=== PATIENT | female | born 1975 | race Caucasian/White ===

== ENCOUNTER 2017-06-03 10:06 | Inpatient (IN) | payer OTHER ==
[2017-06-03] MEDS ORDERED: LIDOCAINE 1% (PF) 10 MG/ML (30 ML SDV) SQ PRN (11:01)
[2017-06-03] MEDS ORDERED: METHYLERGONOVINE 0.2 MG/ML 1 ML AMP IM PRN (11:01)
[2017-06-03] MEDS ORDERED: CARBOPROST TROMETHAMINE 250 MCG/ML 1 ML AMP IM PRN (11:01)
[2017-06-03] MEDS ORDERED: PENICILLIN G POTASSIUM 5,000,000 UNIT in DEXTROSE 5% IN WATER 100 ML IVPB STA ×2 (11:01)
[2017-06-03] MEDS ORDERED: OXYTOCIN 10 UNIT/ML 1 ML VIAL IM PRN (11:01)
[2017-06-03] MEDS ORDERED: TERBUTALINE 1 MG/ML VIAL SQ PRN (11:01)
[2017-06-03 11:13] VITALS: BMI 32.1
[2017-06-03] MEDS ORDERED: OXYTOCIN 20 UNITS/1000 ML NS 1,000 ML IV SCH ×2 (11:15→13:15)
[2017-06-03] MEDS ORDERED: SODIUM CHLORIDE 0.9% 100 ML BAG ONE (11:21)
[2017-06-03] MEDS ORDERED: fentaNYL (PF) 50 MCG/ML 5 ML AMP ONE (11:21)
[2017-06-03] MEDS ORDERED: BUPIVACAINE (PF) 0.25% 30 ML VIAL ONE (11:21)
[2017-06-03] MEDS: LACTATED RINGERS 1,000 ML IV SCH ×2 (11:37→11:57)
[2017-06-03] MEDS ORDERED: BUPIVACAINE (PF) 0.25% 25 ML, fentaNYL (PF) 200 MCG in SODIUM CHLORIDE 0.9% 71 ML EPIDURAL ONE (12:02)
--- NOTE | 2017-06-03 12:20 | P.HPOB ---
History of Present Illness H&P Date: 06/03/17 Chief Complaint: Labor at 38 and one sevenths weeks Is a 41-year-old 6 para 3023 woman with an estimated due date of 2017 based on LMP consistent with second trimester ultrasound. She presents with regular painful uterine contractions and is found to be 4+ centimeters dilated upon presentation. Her has been on, located by advanced maternal age, late care and group E positive status. She denies vaginal bleeding or leakage of fluids. Obstetric history: in 1999 of 8 lbs. 10 oz. male , 2005 of 9 lbs. 6 oz. male with preeclampsia, May 2015 of 9 lbs. 4 oz. male infant uncomplicated. Laboratory data: Blood type A+, antibody screen negative, rubella immune, VDRL nonreactive, hepatitis B surface antigen negative, HIV negative, group B strep positive, gestational diabetes screening negative. Review of Systems All systems: negative Past Medical History Past Medical History: No Reported History History of Any Multi-Drug Resistant Organisms: None Reported Past Surgical History: Orthopedic Surgery Past Psychological History: No Psychological Hx Reported Smoking Status: Former smoker Past Drug Use History: None Reported - Past Family History Father History Unknown: Yes Family Medical History: Diabetes Mellitus Medications and Allergies Home Medications Medication Instructions Recorded Confirmed Type Pnv No.95/Ferrous Fum/Folic AC 1 each PO 06/03/17 History [ Multivitamin Tablet] Allergies Allergy/AdvReac Type Severity Reaction Status Date / Time No Known Allergies Allergy Verified 06/03/17 10:26 Exam - Vital Signs Vital signs: Vital Signs Temp Pulse Resp BP 06/03/17 11:01 97.4 F L 85 18 130/63 06/03/17 10:27 97.4 F L 85 18 130/63 Intake and Output 06/02/17 06/03/17 06/03/17 22:59 06:59 14:59 Other: Weight 90.265 kg Patient Weight 06/04/17 06:59 Weight 90.265 kg This is a somewhat uncomfortable, visibly gravid female. Targeted physical exam is performed. Abdomen is gravid with a fundal height consistent with gestational age. On pelvic examination the cervix is 8 cm dilated, 100% effaced and the vertex is in the -1 station. Artificial rupture of membranes is undertaken and clear fluid is noted. heart tones are reassuring by external monitoring and she is jayshree every 1-3 minutes. Assessment and Plan (1) 38 weeks gestation of Current Visit: Yes Status: Acute Code(s): Z3A.38 - 38 WEEKS GESTATION OF SNOMED Code(s): 79130566 (2) Advanced maternal age (AMA) in Current Visit: Yes Status: Acute Code(s): BRE8596 - SNOMED Code(s): 436953397 (3) Spontaneous onset of labor Current Visit: Yes Status: Acute Code(s): IDR8259 - SNOMED Code(s): 12364458 (4) GBS (group B Streptococcus carrier), +RV culture, currently Current Visit: Yes Status: Acute Code(s): O99.820 - STREPTOCOCCUS B CARRIER STATE COMPLICATING SNOMED Code(s): 2121245280838 Plan: 41-year-old 6 para 3 woman in spontaneous active labor at 38 and one sevenths weeks gestation. She has a history of previous macrosomic deliveries. She is group B strep positive and prophylactic antibiotics have been initiated per protocol. She is comfortable with her epidural and I anticipate normal spontaneous vaginal delivery.
[2017-06-03] MEDS ORDERED: HYDROCORTISONE 2.5% RECTAL CREAM 30 GM TUBE RECTAL PRN (13:06)
[2017-06-03] MEDS ORDERED: diphenhydrAMINE 50 MG/ML 1 ML VIAL IVP PRN ×2 (13:06)
[2017-06-03] MEDS ORDERED: ZOLPIDEM 5 MG TAB PO PRN (13:06)
[2017-06-03] MEDS ORDERED: LANOLIN CREAM 5 GM TUBE TOPICAL PRN (13:06)
[2017-06-03] MEDS ORDERED: WITCH HAZEL 1 EACH MED..PAD TOPICAL PRN (13:06)
[2017-06-03] MEDS ORDERED: SIMETHICONE 80 MG CHEWABLE PO PRN (13:06)
[2017-06-03] MEDS ORDERED: diphenhydrAMINE 50 MG CAP PO PRN (13:06)
[2017-06-03] MEDS ORDERED: diphenhydrAMINE 25 MG CAP PO PRN (13:06)
[2017-06-03] MEDS ORDERED: BENZOCAINE/MENTHOL SPRAY 1 GM/SPRAY AEROSOL TOPICAL PRN (13:06)
--- NOTE | 2017-06-03 13:06 | P.PROBDLV ---
Vaginal Delivery Note - . Vaginal Delivery Note: Findings: Male infant in the 8 lbs. 4 oz., 3750 g. First-degree perineal laceration. Intact, three-vessel cord placenta. EBL 100 mL's. Delivery summary: This is a 41-year-old 6 para 3 who presented at 38 and one sevenths weeks gestation in spontaneous active labor. She is group B strep positive and received prophylactic antibiotics. She had rapid progression and did undergo artificial rupture of membranes with clear fluid was noted. Following rupture of membranes she was completely dilated approximately 30 minutes later. She commenced pushing with excellent maternal effort. She was positioned, and the dorsal modified Guillaume position and was prepped and draped. With additional maternal effort the head crowned from the right occiput anterior position. Nose and mouth were bulb suctioned. The anterior followed by the posterior shoulders were delivered rapidly and without difficulty. The resting. Delivered onto the field where the nose and mouth were further bulb suctioned. The was placed on the maternal abdomen. The cord was clamped and cut. Apgars were 8 at 1 minute and 9 at 5 minutes. Weight was 8 lbs. 4 oz. An intact, three-vessel cord placenta was delivered after approximately 10 minute third stage of labor. First degree perineal laceration was noted. This was repaired with 3-0 Vicryl suture in the usual fashion. The uterus was massaged and was noted to be firm. The rest the vagina and cervix were inspected and no further lacerations were noted. The patient received Pitocin following delivery. All counts were correct.
[2017-06-03] MEDS ORDERED: PENICILLIN G POTASSIUM 2,500,000 UNIT in DEXTROSE 5% IN WATER 100 ML IVPB SCH ×2 (15:00)
[2017-06-03] MEDS: IBUPROFEN 600 MG TAB PO PRN (18:11)
[2017-06-03] MEDS: ACETAMINOPHEN TAB 325 MG TAB PO PRN (20:21)
[2017-06-03] MEDS: SENNOSIDES-DOCUSATE SODIUM 1 EACH TAB PO SCH (20:23)
[2017-06-04] MEDS: IBUPROFEN 600 MG TAB PO PRN ×2 (00:53→08:09)
[2017-06-04] MEDS: ACETAMINOPHEN TAB 325 MG TAB PO PRN (04:06)
[2017-06-04] MEDS: SENNOSIDES-DOCUSATE SODIUM 1 EACH TAB PO SCH ×2 (08:09→22:18)
--- NOTE | 2017-06-04 10:11 | P.PNOBGVD ---
Subjective - Subjective Principal diagnosis: day #1 Interval history: Of upper respiratory congestion and cough. She is complaining of inadequate pain control. She normally takes extra strength Tylenol and Motrin 800 at home for routine aches and pains and complains that current medications are not controlling her low back, peritoneal, hip and uterine pain. She is breast- feeding successfully and ambulating and voiding without difficulty. Patient reports: Reports appetite normal, Reports voiding normally, Reports pain poorly controlled, Reports ambulating normally [place]: doing well Objective - Latest Vital Signs Latest vital signs: Vital Signs Temp Pulse Resp BP 06/04/17 08:00 97.3 F L 77 18 122/73 06/04/17 00:00 98.5 F 84 18 100/56 06/03/17 20:00 98.5 F 94 18 109/65 06/03/17 15:16 75 18 133/61 06/03/17 14:46 75 18 142/70 06/03/17 14:15 79 16 124/60 06/03/17 14:01 72 16 125/59 06/03/17 13:46 78 18 123/55 06/03/17 13:31 97.4 F L 75 18 121/66 06/03/17 13:16 81 18 119/63 06/03/17 11:01 97.4 F L 85 18 130/63 06/03/17 10:27 97.4 F L 85 18 130/63 Intake and Output 06/03/17 06/04/17 06/04/17 22:59 06:59 14:59 Output Total 100 Balance -100 Output: Estimated Blood Loss 100 Other: # Voids 1 - Exam Extremities: Present: normal Abdomen: Present: normal appearance, soft. Absent: tenderness Uterus: Present: normal, firm. Absent: tenderness Assessment and Plan (1) 38 weeks gestation of Current Visit: Yes Status: Acute Code(s): Z3A.38 - 38 WEEKS GESTATION OF SNOMED Code(s): 11952110 (2) Advanced maternal age (AMA) in Current Visit: Yes Status: Acute Code(s): TJR0946 - SNOMED Code(s): 532204374 (3) Spontaneous onset of labor Current Visit: Yes Status: Acute Code(s): LUX2427 - SNOMED Code(s): 47251066 (4) GBS (group B Streptococcus carrier), +RV culture, currently Current Visit: Yes Status: Acute Code(s): O99.820 - STREPTOCOCCUS B CARRIER STATE COMPLICATING SNOMED Code(s): 0731715325124 (5) Normal spontaneous vaginal delivery Current Visit: Yes Status: Acute Code(s): O80 - ENCOUNTER FOR FULL-TERM UNCOMPLICATED DELIVERY SNOMED Code(s): 36492554 (6) Perineal laceration with delivery, first degree Current Visit: Yes Status: Acute Code(s): O70.0 - FIRST DEGREE PERINEAL LACERATION DURING DELIVERY SNOMED Code(s): 730242350 Plan: We discussed options for pain control. We will change her Motrin to 800 mg and add been on a when necessary. It was discussed that this should be for the short-term and she really has an uncomplicated delivery and small perineal laceration. Sudafed ordered for upper respiratory congestion. Probable discharge home tomorrow.
[2017-06-04] MEDS: Acetaminophen-Codeine 300-30mg TAB PO PRN ×2 (10:56→17:47)
[2017-06-04] MEDS: PSEUDOEPHEDRINE 30 MG TAB PO PRN ×2 (11:19→17:47)
[2017-06-04] MEDS: IBUPROFEN 800 MG TAB PO PRN ×2 (14:34→22:16)
[2017-06-05] MEDS: PSEUDOEPHEDRINE 30 MG TAB PO PRN ×2 (00:08→05:45)
[2017-06-05] MEDS: Acetaminophen-Codeine 300-30mg TAB PO PRN ×2 (04:57→11:22)
--- NOTE | 2017-06-05 08:31 | P.DS ---
Providers Date of admission: 06/03/17 10:52 Expected date of discharge: 06/05/17 Attending physician: Priscilla Elise Primary care physician: Stated None Hospital Course: 6 para 30-3 at 38-1/7 weeks. She presented to labor and delivery on 06/03/2017 with complaints of contractions. She progressed quickly and had a spontaneous vaginal delivery of a viable male at 37. Weight of 8 lbs. 4 oz., Apgars 8 and 9 at one and 5 minutes respectively. She was GBS positive and fairly received 1 dose of antibiotics prior to delivery of the infant. The patient's course has been essentially uneventful. She is ambulating and voiding without difficulty or pain is controlled with oral medications. Of note the infant was admitted to special care nursery secondary to an elevated CRP. They're currently dosing antibiotics for 48 hours secondary to limited antibiotics given to mom prior to delivery of the . Patient Condition at Discharge: Good Plan - Discharge Summary New Discharge Prescriptions: No Action Pnv No.95/Ferrous Fum/Folic AC [ Multivitamin Tablet] 1 each PO Discharge Medication List Pnv No.95/Ferrous Fum/Folic AC [ Multivitamin Tablet] 1 each PO [History] Follow up Appointment(s)/Referral(s): Priscilla Elise DO [Doctor of Osteopathic Medicine] - 2 Weeks Discharge Disposition: HOME SELF-CARE
[2017-06-05] MEDS: IBUPROFEN 800 MG TAB PO PRN ×2 (08:59→17:11)
[2017-06-05] MEDS: SENNOSIDES-DOCUSATE SODIUM 1 EACH TAB PO SCH (08:59)
[2017-06-05 09:38] VITALS: TEMP 98.4
[2017-06-05 18:12] VITALS: BP 118/87; PULSE 96; RESP 15
== END 2017-06-05 19:20 | disposition home or self-care (01) | DRG 775 ==
LOC: FBPOP 10:06 → 4FBP 10:52
PROVIDERS: ADMIT Obstetrics & Gynecology; ATTEND Obstetrics & Gynecology Obstetrics
PROC: 10E0XZZ Delivery of Products of Conception, External Approach (ICD-10-PCS; principal; 2017-06-03)
PROC: 10907ZC Drainage of Amniotic Fluid, Therapeutic from Products of Conception, Via Natural or Artificial Opening (ICD-10-PCS; 2017-06-03)
PROC: 00HU33Z Insertion of Infusion Device into Spinal Canal, Percutaneous Approach (ICD-10-PCS; 2017-06-03)
PROC: 3E0R3NZ Introduction of Analgesics, Hypnotics, Sedatives into Spinal Canal, Percutaneous Approach (ICD-10-PCS; 2017-06-03)
PROC: 0HQ9XZZ Repair Perineum Skin, External Approach (ICD-10-PCS; 2017-06-03)
DX: O99.824 Streptococcus B carrier state complicating childbirth (principal); Z37.0 Single live birth; O70.0 First degree perineal laceration during delivery; Z3A.38 38 weeks gestation of pregnancy; Z83.3 Family history of diabetes mellitus; Z87.891 Personal history of nicotine dependence
CPT/HCPCS: 88307; 99213

== ENCOUNTER 2017-10-10 20:35 | Emergency (ER) | payer OTHER ==
[2017-10-10 20:49] VITALS: BP 115/55; PULSE 91; RESP 18; TEMP 98.3
--- NOTE | 2017-10-10 22:27 | ED ---
URI HPI - General Chief Complaint: Upper Respiratory Infection Stated Complaint: congestion Time Seen by Provider: 10/10/17 21:01 Source: patient Mode of arrival: ambulatory Limitations: no limitations - History of Present Illness Initial Comments: Patient's a 41-year-old woman who presents to be evaluated for cough, congestion , sore throat. The symptoms have been going on for a number of days. Patient notes that one of her siblings had similar symptoms prior to her developing them. Her youngest son has also developed similar symptoms a few days after hers came on. Patient was concerned because the older sibling had a chest x- ray that didn't show pneumonia. Patient denies dyspnea. Not having fever or chills. No chest pain. Cough is occasionally productive of yellow sputum. MD Complaint: cough, sore throat, nasal congestion -: days(s) Severity: moderate Consistency: constant Improves With: nothing Worsens With: nothing Context: sick contacts Associated Symptoms: denies other symptoms, nasal congestion, sore throat, cough - Related Data Home Medications Medication Instructions Recorded Confirmed Pnv No.95/Ferrous Fum/Folic AC 1 tab PO DAILY 06/03/17 10/10/17 [ Multivitamin Tablet] Acetaminophen Tab [Tylenol Tab] 1,000 mg PO Q6HR PRN 10/10/17 10/10/17 Diphenhydra/Phenyleph/Acetamin 1 pack PO DAILY PRN 10/10/17 10/10/17 [Theraflu Severe Cold & Cough] Ibuprofen [Motrin Ib] 800 mg PO TID PRN 10/10/17 10/10/17 Previous Rx's Medication Instructions Recorded predniSONE 20 mg PO BID #8 tab 10/10/17 Allergies Allergy/AdvReac Type Severity Reaction Status Date / Time No Known Allergies Allergy Verified 10/10/17 21:03 Review of Systems ROS Statement: Those systems with pertinent positive or pertinent negative responses have been documented in the HPI. ROS Other: All systems not noted in ROS Statement are negative. Constitutional: Denies: fever, chills Eyes: Denies: eye discharge ENT: Reports: throat pain, congestion Respiratory: Reports: cough. Denies: dyspnea, wheezes, hemoptysis Cardiovascular: Denies: chest pain, palpitations Gastrointestinal: Denies: abdominal pain, vomiting Musculoskeletal: Denies: back pain Skin: Denies: rash Neurological: Denies: headache Past Medical History Past Medical History: No Reported History History of Any Multi-Drug Resistant Organisms: None Reported Past Surgical History: Orthopedic Surgery Additional Past Surgical History / Comment(s): left knee Past Psychological History: No Psychological Hx Reported Smoking Status: Former smoker Past Alcohol Use History: None Reported Past Drug Use History: None Reported - Past Family History Father History Unknown: Yes Family Medical History: Diabetes Mellitus General Exam Limitations: no limitations General appearance: alert, in no apparent distress Head exam: Present: atraumatic, normocephalic Eye exam: Present: normal appearance ENT exam: Present: mucous membranes moist, TM's normal bilaterally, normal external ear exam, other (Mild cobblestoning of the pharynx.) Neck exam: Present: normal inspection, full ROM. Absent: lymphadenopathy Respiratory exam: Present: normal lung sounds bilaterally. Absent: respiratory distress, wheezes, rales, rhonchi, stridor Cardiovascular Exam: Present: regular rate, normal rhythm, normal heart sounds. Absent: systolic murmur, diastolic murmur, rubs, gallop Extremities exam: Present: normal inspection Back exam: Present: normal inspection. Absent: CVA tenderness (R), CVA tenderness (L) Neurological exam: Present: alert Skin exam: Present: warm, dry, intact, normal color. Absent: rash Course Vital Signs 10/10/17 20:44 Temperature 98.3 F Pulse Rate 91 Respiratory 18 Rate Blood Pressure 115/55 O2 Sat by Pulse 96 Oximetry Disposition Clinical Impression: Upper respiratory infection Disposition: HOME SELF-CARE Condition: Good Instructions: Upper Respiratory Infection (ED) Prescriptions: predniSONE 20 mg PO BID #8 tab Is patient prescribed a controlled substance at d/c from ED?: No Referrals: None,Stated [Primary Care Provider] - 1-2 days
== END 2017-10-10 22:55 | disposition home or self-care (01) ==
LOC: EC 20:35
DX: J06.9 Acute upper respiratory infection, unspecified (principal); Z87.891 Personal history of nicotine dependence; Z79.899 Other long term (current) drug therapy
CPT/HCPCS: 99282